=== PATIENT | female | born 1985 | race African-American/Black ===

== ENCOUNTER 2024-11-10 09:27 | Emergency (ER) | payer OTHER ==
[2024-11-10 09:58] VITALS: BP 138/73; PULSE 85; RESP 20; TEMP 98.3; BMI 29.0
== END 2024-11-10 10:06 | disposition home or self-care (01) ==
LOC: JERFT 09:27
DX: L02.221 Furuncle of abdominal wall (principal)
CPT/HCPCS: 99283-25

== ENCOUNTER 2025-03-23 08:23 | Emergency (ER) | payer OTHER ==
[2025-03-23 08:33] VITALS: BP 133/74; PULSE 68; RESP 20; TEMP 98.3; BMI 32.5
[2025-03-23] MEDS: KETOROLAC TROMETHAMINE 15 MG/ML VIAL IM ONE ×2 (08:51→09:14)
[2025-03-23] MEDS ORDERED: KETOROLAC TROMETHAMINE 30 MG/1 ML VIAL ONE (08:52)
[2025-03-23] MEDS ORDERED: diphenhydrAMINE HCL 25 MG CAPSULE (FP) PO ONE (09:21)
[2025-03-23] MEDS ORDERED: FAMOTIDINE 20 MG TABLET ONE (09:22)
[2025-03-23] MEDS: diphenhydrAMINE HCL 25 MG CAPSULE (FP) PO ONE (09:24)
[2025-03-23] MEDS: FAMOTIDINE 20 MG TABLET PO ONE (09:24)
[2025-03-24] MEDS ORDERED: FAMOTIDINE 20 MG/50 ML IVPB 20 MG/50 ML MG IVPB ONE (09:04)
[2025-03-26] MEDS ORDERED: SULFAMETHOXAZOLE/TRIMETHOPRIM 800MG/160MG D.S. TABLET ONE (07:22)
[2025-03-27] MEDS ORDERED: NALOXONE HCL 0.4 MG/ML VIAL ONE (14:32)
== END 2025-03-23 10:19 | disposition home or self-care (01) ==
LOC: JER 08:23
PROC: 3E0233Z Introduction of Anti-inflammatory into Muscle, Percutaneous Approach (ICD-10-PCS; principal; 2025-03-23)
DX: M65.4 Radial styloid tenosynovitis [de Quervain] (principal); M67.834 Other specified disorders of tendon, left wrist; M25.532 Pain in left wrist
CPT/HCPCS: 73110-TC-LT-FY; 99284-25